=== PATIENT | female | born 1995 | race Caucasian/White ===

== ENCOUNTER → 2016-10-18 | Outpatient (CLI) | payer BC ==
--- NOTE | 2016-10-18 21:24 | DIAGNOSTIC IMAGING REPORT ---
LEFT FOREFOOT MRI HISTORY: Left foot pain. TECHNIQUE: Multiplanar multisequence MRI of the left forefoot was performed without the use of intravenous contrast. COMPARISON STUDY: Left foot 09/27/2016. FINDINGS: There is a marker along the plantar surface of the second and third MTP joints. Deep to the skin marker there is mild soft tissue edema surrounding the third MTP joint. There is a normal marrow signal intensity within the visualized osseous structures. No fracture or dislocation. No joint effusions identified. The flexor and extensor tendons are intact. IMPRESSION: Small amount of nonspecific soft tissue edema surrounding the third MTP joint. No underlying bony abnormality. Electronically signed by: Wing Cancino M.D. 10/19/2016 9:36 AM Dictated Date/Time: 10/18/2016 9:17 PM
== END | disposition home or self-care (01) ==
LOC: C.MRI 18:30
PROVIDERS: ATTEND Internal Medicine
DX: M79.673 Pain in unspecified foot (principal)